=== PATIENT | male | born 1995 | race Native Hawaiian/Other Pacific Islander ===

== ENCOUNTER 2019-03-30 05:33 | Emergency (ER) | payer OTHER ==
[~2019-03-30] VITALS: Ht 185.4 cm; Wt 111.1 kg
[2019-03-30 05:47] VITALS: BP 150/96; TEMP 98.1
== END 2019-03-30 06:24 | disposition home or self-care (01) ==
LOC: ED 05:33
DX: H60.92 Unspecified otitis externa, left ear (principal)
CPT/HCPCS: 99281; 99282

== ENCOUNTER 2019-04-01 11:58 | Emergency (ER) | payer OTHER ==
[~2019-04-01] VITALS: Ht 185.4 cm; Wt 111.1 kg
[2019-04-01 12:17] VITALS: TEMP 98.2
[2019-04-01 14:26] VITALS: BP 122/80
== END 2019-04-01 14:25 | disposition home or self-care (01) ==
LOC: ED 11:58
DX: H92.02 Otalgia, left ear (principal); H60.92 Unspecified otitis externa, left ear
CPT/HCPCS: 96372; 99283; J0696; J1885